=== PATIENT | female | born 2005 | race Hispanic/Latino ===

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

== ENCOUNTER 2023-10-10 14:22 | Emergency (ER) | payer SELFPAY ==
[2023-10-10 14:35] VITALS: BP 119/70; PULSE 101; RESP 20; TEMP 36.6; O2SAT 99
--- NOTE | 2023-10-10 15:50 | ED.URI ---
HPI - URI/Sore Throat General Chief Complaint: Upper Respiratory Infection Stated Complaint: Headache/Cough Time Seen by Provider: 10/10/23 15:51 Source: patient, RN notes reviewed and old records reviewed Mode of arrival: ambulatory Limitations: no limitations History of Present Illness HPI Narrative: 18-year-old female presents to the [facility] cough, congestion, headache, body aches since Tuesday. Has been taken [id number] products. Treatments prior to arrival: cold medicine Related Data Home Medications Medication Instructions Recorded Confirmed No Home Medications 01/28/22 10/10/23 Allergies Allergy/AdvReac Type Severity Reaction Status Date / Time No Known Allergies Allergy Verified 10/10/23 15:00 Review of Systems Review of Systems: All systems reviewed & are unremarkable except as noted in HPI and below Constitutional: Constitutional: Reports as per HPI Eyes: Eyes: Reports no additional eye complaints ENT: Reports as per HPI Cardiovascular: Cardiovascular: Reports no additional cardiovascular complaints, Denies chest pain and Denies dyspnea Respiratory: Respiratory: Reports no additional respiratory complaints, Denies chest congestion, Denies cough and Denies dyspnea Gastrointestinal: Gastrointestinal: Reports no additional gastrointestinal complaints, Denies abdominal pain, Denies nausea and Denies vomiting Musculoskeletal: Musculoskeletal: Reports no additional musculoskeletal complaints Integumentary/Breasts: Skin/Breast: Reports system reviewed and no additional complaints, except as docu Neurologic: Reports system reviewed and no additional complaints, except as documented Psychiatric: Psychiatric: Reports no additional psychiatric complaints Allergic/Immunologic: Allergic/Immunologic: Reports no additional allergic/immunologic complaints [facility] Past Medical History Medical History Allergic sinusitis Surgical History Surgical History No history of previous surgery Family History Family History Other No significant family history Social History Social History Smoking status: Never smoker Alcohol intake: never Substance use: never Living arrangements: with family Occupation/Education: student Gender identity (if verbalized by the patient): Female Comments At the time of my signature, I reviewed and agree with the nursing past medical, surgical, social, and family history. There is no relevant family history pertinent to the patient complaint. Exam Const: General: cooperative, healthy appearing, comfortable, no acute distress, well developed, alert and well nourished Nutritional Appearance: well nourished Orientation/consciousness: patient oriented x3 Limitations: no limitations HENMT: Head: normal to inspection Ears: hearing grossly normal bilaterally and external ears normal Face/Nose/Sinus: Normal external nose present, Normal nares present, Normal nasal mucous membranes and turbinates present, normal facial exam and face symmetric Face and sinus: normal facial exam and face symmetric Mouth: Yes Normal oral and palatal mucosa present, Yes lip normal and Yes tongue normal Throat: posterior oropharynx normal, tonsils normal and uvula midline Eyes: General: appearance normal, both eyes and all related structures Alignment and Position: alignment normal Periorbital: periorbital findings normal Pupils: Equal, round and reactive pupils present EOM: EOMs intact bilaterally Neck: Neck: normal visual inspection, full ROM, no lymphadenopathy and no meningeal signs Chest: Chest palpation & inspection: normal inspection of the chest Resp: Effort & Inspection: normal respiratory effort and able to speak in complete sentences Auscultation: clear
== END 2023-10-10 15:57 | disposition home or self-care (01) ==
PROVIDERS: Emergency Provider Nurse Practitioner
DX: U07.1 COVID-19 (principal)
CPT/HCPCS: 87426; 99212; G0463

== ENCOUNTER 2024-06-05 12:54 | Emergency (ER) | payer SELFPAY ==
[2024-06-05 12:56] VITALS: BP 112/70; PULSE 80; RESP 15; TEMP 36.6; O2SAT 99
--- NOTE | 2024-06-05 13:47 | ED.RECABL ---
HPI - Recheck/Abnormal Lab/Rx General Chief Complaint: Recheck/Abnormal Lab/Rx Stated Complaint: needlestick Time Seen by Provider: 06/05/24 13:02 Source: patient Mode of arrival: ambulatory Limitations: no limitations History of Present Illness HPI narrative: This is a 19-year-old female that presents to the emergency department for a needlestick injury. She is a dental medical receptionist assistant. When she was putting a needle into the sharps container when she accidentally stuck her left 4th finger. Does report there was bleeding initially, there was no notable injury at this time. She did immediately washed her hands with soap and water. The patient does not have any known communicable diseases Related Data Home Medications ?Medication ?Instructions ?Recorded ?Confirmed ?Last Taken ?Type No Home Medications 01/28/22 10/10/23 Unknown History Allergies Allergy/AdvReac Type Severity Reaction Status Date / Time No Known Allergies Allergy Verified 10/10/23 15:00 Review of Systems Review of Systems: All systems reviewed & are unremarkable except as noted in HPI and below PMFSH Past Medical History Medical History Allergic sinusitis Surgical History Surgical History No history of previous surgery Family History Family History Other No significant family history Social History Social History Smoking status: Never smoker Alcohol intake: never Substance use: never Living arrangements: with family Occupation/Education: student Gender identity (if verbalized by the patient): Female Exam Narrative: GENERAL: Well-appearing, well-nourished, and in no acute distress. HEAD: Normocephalic, atraumatic. EYES: EOMI. EXTREMITIES: Normal range of motion. No edema. SKIN: Warm, dry, no rash. NEURO: No focal deficits. Alert and oriented x3. PSYCH: Normal mood and affect Course Vital Signs Vital signs: Vital Signs Temperature 97.8 F 06/05/24 12:56 Pulse Rate 80 06/05/24 12:56 Respiratory Rate 15 06/05/24 12:56 Blood Pressure 112/70 06/05/24 12:56 Pulse Oximetry 99 06/05/24 12:56 Oxygen Delivery Room Air 06/05/24 12:56 Temperature 97.8 F 06/05/24 12:56 Pulse Rate 80 06/05/24 12:56 Respiratory Rate 15 06/05/24 12:56 Blood Pressure 112/70 06/05/24 12:56 Pulse Oximetry 99 06/05/24 12:56 Oxygen Delivery Room Air 06/05/24 12:56 MDM - Recheck/Abnormal Lab/Rx MDM Narrative Medical decision making narrative: Patient presents to the emergency department for a needlestick injury. She is a dental medical receptionist assistant. When she was putting a needle into the sharps container when she accidentally stuck her left 4th finger. Does report there was bleeding initially, there was no notable injury at this time. She did immediately washed her hands with soap and water. The patient does not have any known communicable diseases. Needlestick profile was sent. Patient reports she will follow up on the portal for her results. Instructed to have further follow-up with primary provider Lab Data Labs: Lab Results 06/05/24 Range/Units 13:21 Hep Bs Antibody Pending Hepatitis C Ab Screen Pending HIV 1&2 Ab/P24 Ag 4thGn Pending Critical Care Time Critical Care Time Critical Care Time: No Discharge Plan Discharge Clinical Impression: Needlestick injury accident Patient Disposition: Home Condition: Stable Instructions: Needle Stick Injuries (ED) Additional Instructions: Follow-up with primary provider for further evaluation/management Patient Language: Turkish Prescriptions: No Action No Home Medications Follow-up/Referrals: Dagoberto Luciano MD [Physician] - UNKNOWN,DOCTOR [Primary Care Provider] -
--- OUTSIDE RECORDS SUMMARY | 2024-06-05 14:27 | XMS_ITS | Data Portability ---
Author Organization [facility] Address [address] [place] [address] Assessment Encounter Date Assessment Date Assessment LastModified by Organization Details LastModified Time 10/21/2023 10/21/2023 Patient here for medical screening to get a physical for work Exam within normal limits patient denies any acute complaints Provided pt return precautions as needed. Not available 10/21/2023 16:46:47 Plan of Treatment Reminders Order Date Submit Date Provider Last Modified By Organization Details Last Modified Time Details Appointments None record ed. Lab None record ed. Referral None record ed. Procedures None record ed. Surgeries None record ed. Imaging None record ed. Medication Orders None record ed. Patient TargetsNo targets recorded. Patient Instructions Encounter Date Encounter Id Patient Instructions Last Modified By Organization Details Last Modified Time 10/21/2023 [id number] A healthy lifestyle: care instructions Not available 10/21/2023 16:47:15 Continue a healthy balanced diet that includes fruits and vegetables Make sure to stay hydrated drinking plenty of water stay away from sugary drinks like soda Make sure to include regular exercise every week Get plenty of rest Follow up with your PCP for routine visits Not available 10/21/2023 16:47:14 Reason for Referral None Reported. Problems No Known Problems Medical Equipment None Reported. Allergies No known drug allergies Medications Not known to be on any medication Vitals Date Recorded Body height Body mass index (BMI) Body mass index (BMI) Percentile per age and sex Body weight Oxygen saturation Oxygen saturation in Arterial blood by Pulse oximetry Heart rate Respiratory rate Body temperature Systolic blood pressure Diastolic blood pressure Provider Name and Address Organization Details Last Updated DateTime 170.18 cm 25.4 kg/m2 80 % 65185.6 6 g 98 % 98 % 80 /min 18 /min 98.1 [degF] 116 mm[Hg] 81 mm[Hg] Alvina Chowdary MA [place] - [facility] 16:31:26 Social History Question Answer Notes LastModified by Organizat ion Details LastModified Time Tobacco Smoking Status Never Smoker Alvina Chowdary MA null, [place] - [facility] 10/21/2023 16:33:16 Do You Have An Advance Directive? Yes Information n ot available 10/21/2023 What Is Your Level Of Alcohol Consumption? None Information not available 10/21/2023 Are You Blind Or Do You Have Difficulty Seeing? No Information n ot available 10/21/2023 What Is Your Level Of Caffeine Consumption? Occasional Information not available 10/21/2023 In The 14 Days Before Symptom Onset, Have You Had Close Contact With A Laboratory-confirm ed COVID-19 While That Case Was Ill? No Information n ot available 10/21/2023 In The 14 Days Before Symptom Onset, Have You Had Close Contact With A Person Who Is Under Investigation For COVID-19 While That Person Was Ill? No Information not available 10/21/2023 Have You Been To An Area Known To Be High Risk For COVID-19? No Information not available 10/21/2023 Are You Currently Employed? Yes Information not available 10/21/2023 Are You Deaf Or Do You Have Serious Difficulty Hearing? No Information not available 10/21/2023 What Type Of Diet Are You Following? REGULAR Information n ot available 10/21/2023 Are There Any Guns Present In Your Home? No Information not available 10/21/2023 What Was The Date Of Your Most Recent Tobacco Screening? 10/21/2023 Information not available 10/21/2023 How Many Children Do You Have? 0 Information not available 10/21/2023 Do You Use Protection During Sex? Usually Information not available 10/21/2023 What Is Your Relationship Status? Single Information not available 10/21/2023 Do You Use Your Seat Belt Or Car Seat Routinely? Yes Information not available 10/21/2023 Are You Sexually Active? Yes Information not available 10/21/2023 Do You Have Smoke And Carbon Monoxide Detectors In Your Home? Yes Information not available 10/21/2023 Are You Passively Exposed To Smoke? No Information no t available 10/21/2023 Do You Feel Stressed (tense, Restless, Nervous, Or Anxious, Or Unable To Sleep At Night)? [id number] Information not available 10/21/2023 Do You Use Any Illicit Or Recreational Drugs? No Information not available 10/21/2023 Do You Use Sunscreen Routinely? No Information not available 10/21/2023 Has Tobacco Cessation Counseling Been Provided? No Information not available 10/21/2023 Do You Or Have You Ever Used Any Other Forms Of Tobacco Or Nicotine? No Information not available 10/21/2023 Sex: Female Functional Status Question Answer Note LastModified by Organization D etails LastModified Time Are you able to care for yourself? Yes Information n ot available 10/21/2023 What is your exercise level? None Information not available 10/21/2023 Mental Status None recorded. Family History Relationship Description Onset Age of this Age Resolved Age Notes LastModified by Organization Details LastModified Time Father No current problems or disability [email or web address] Not available 10/20 16:32:50 Mother No current problems or disability [email or web address] Not available 10/20 16:32:50 Medical History Condition Response Coronary Artery Disease N Other N High Blood Pressure N Atrial Fibrillation N Thyroid Problems N Kidney or Bladder Problems N GI Problems N Depression N COPD N Blood Clots N Have you had a mammogram in the last yea r? N Skin Problems N Eating Disorder N Anemia N Heart Attack (DE) N Anxiety Disorder N Diabetes N Muscle, Joint, or Bone Problems N Arthritis N Seizures/Epilepsy N Have you had a colonoscopy in the last 1 0 years? N Acid Reflux (GERD) N Cancer N Stroke N Asthma N Allergies N Have you had a PSA blood test in the las t year? N ADHD N Substance Abuse N High Cholesterol N Hepatitis N Liver Disease N Schizophrenia N Headaches N Heart Failure N Osteoporosis N Gynecological History Statement/Question Response Flow Moderate Date of LMP 10/07/2023 Frequency of Cycle (Q days) 28 On BCP's at Conception? N Menses Monthly Y Duration of Flow (days) 5 Age at Menarche 10 Current Control Method None LMP Definite Obstetrics History GPAL:G 0 P 0 0 0 0 Past Encounters Encounter ID Performer Location Encounter Start Date Encounter Closed Date Diagnosis/Indication Diagnosis SNOMED-CT Code Diagnosis ICD10 Code Diagnosis Note [id number] MAGGIE MONTES DE OCA NP [facility] [address] [address] 10/21/2023 16:07:03 10/24/2023 10:59:07 Overweight 847497541 E66.3 Adult heal th examination 548166949 Z00.00 Health Concerns Section Related Observation LastModified by Organization Detai ls LastModified Time None Recorded Concern Status LastModified by Organization Details LastModified Time None Recorded Advance Directives Directive Y: Payers Encounter Date Sequence Insurance Name Policy Number Policy He Covered Member ID He Member ID Guarantor Name 10/21/2023 1 *SELF PAY* Sweetie Mar Notes Date Note Type Note Provider Name and Address Organization Details Recorded Time 10/21/2023 text/html Beti Pena az is a 18 y/o female who presents today to get a physical for work. She denies any PMHx/ not on any medications and denies any acute medical complaints MAGGIE MONTES DE OCA NP Attn: [address] [place], [address], [facility] 10/21/2023 16:47:40 OBGyn Episode No OBEpisode recorded.
--- OUTSIDE RECORDS SUMMARY | 2024-06-05 14:27 | XMS_ITS | Clinical Summary ---
Author Organization [facility] Address [address] [place] [address] Care Team Providers Care Brake Liner Name Role Phone Temo Castro MD Primary Care Provider [phone] Source Comments [facility],non-owned Affiliates and Associated Physician Practices is amultiple site organization consisting of ambulatory clinics and hospital sitesin [place], [place], [place] and [place]. This disclosure is being madepursuant to the Care Everywhere program and may not contain all information available regarding this patient. Last updated 17.[facility] Allergies No known active allergies Medications * Be aware that medications may not be up to date on this document. Alwaysverify current medications with the patient. 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 Gender Identity Not on file Sexual Orientation Not on file Plan of Treatment Health Maintenance Due Date Last Done Comments HIV SCREENING 05/01/2018 HPV VACCINE (1 - 3-dose series) 05/01/2018 CHLAMYDIA/GONORRHEA SCREENING 2019 MENINGOCOCCAL (Group B) VACC INE SHARED DECISION-MAKING (1 of 2 - Standard) 2019 HEPATITIS C SCREENING 04/27/2021 DTAP/TDAP/TD VACCINES (1 - Tdap) 05/01/2022 HEPATITIS B VACCINE (1 of 3 - 19+ 3-dose series) 05/01/2022 COVID-19 VACCINE (1 - 2023-2 5 season) 2023 DEPRESSION SCREENING 02/15/2024 INFLUENZA VACCINE (Season Ended) 2024 ZOSTER VACCINE (1 of 2) 05/01/2053 HIB VACCINE Aged Out No longer eligi ble based on patient's age to complete this topic MENINGOCOCCAL GROUPS A/C/Y/W VACCINE Aged Out No longer eligible b ased on patient's age to complete this topic PNEUMOCOCCAL VACCINE Aged Out No long er eligible based on patient's age to complete this topic Care Teams Brake Liner Relationship Specialty Start Date End Date Temo Castro MD [address] [place] [id number] PCP - General 11/06/10
[2024-06-05 15:06] LABS: HIV 1/2 Ab P24 Ag Result Negative (Negative); Hepatitis B Surface Anti Res Positive; Hepatitis C Virus Antibody Negative (Negative)
--- OUTSIDE RECORDS SUMMARY | 2024-06-05 15:10 | XMS_ITS | Clinical Summary ---
Author Organization [facility] Address [address] [place] [address] Care Team Providers Care Individual Pension Consultant Name Role Phone Temo Castro MD Primary Care Provider [phone] Source Comments [facility],non-owned Affiliates and Associated Physician Practices is amultiple site organization consisting of ambulatory clinics and hospital sitesin [place], [place], [place] and [place]. This disclosure is being madepursuant to the Care Everywhere program and may not contain all information available regarding this patient. 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
== END 2024-06-05 13:56 | disposition home or self-care (01) ==
PROVIDERS: Emergency Provider Physician Assistant
DX: S61.235A Puncture wound without foreign body of left ring finger without damage to nail, initial encounter (principal); W46.1XXA Contact with contaminated hypodermic needle, initial encounter
CPT/HCPCS: 36415; 86703; 86706; 86803; 99283; G0432